=== PATIENT | female | born 1990 | race Caucasian/White ===

== ENCOUNTER 2016-05-01 19:06 | Emergency (ER) | payer SELFPAY ==
[~2016-05-01] VITALS: Ht 165.1 cm; Wt 59.1 kg
[2016-05-01] MEDS ORDERED: LURA40 PO (19:16)
[2016-05-01] MEDS ORDERED: HYDR-4031 PO (19:16)
[2016-05-01 19:52] LABS: BASOPHILS % (AUTO) 0.4 % (0.0-2.0); EOSINOPHILS % (AUTO) 3.8 % (1.0-6.0); HEMATOCRIT 44.1 % (36-46); HEMOGLOBIN 14.6 g/dL (12.0-16.0); LYMPHOCYTES # (AUTO) 2.9 K/uL (1.0-4.8); LYMPHOCYTES % (AUTO) 42.3 % (22.0-44.0); MEAN CORPUSCULAR HEMOGLOBIN 30.7 pg (26.0-34.0); MEAN CORPUSCULAR HGB CONC 33.1 G/dL (31.0-37.0); MEAN CORPUSCULAR VOLUME 93 fL (80-100); MONOCYTES # (AUTO) 0.5 K/uL (0.1-1.0); MONOCYTES % (AUTO) 7.7 % (2.0-9.0); NEUTROPHILS # (AUTO) 3.1 K/uL (1.8-7.7); NEUTROPHILS % (AUTO) 45.8 % (40.0-70.0); PLATELET COUNT (AUTO) 272 K/uL (150-450); RED BLOOD CELL COUNT(AUTO) 4.76 MIL/uL (4.00-5.20); WHITE BLOOD COUNT (AUTO) 6.8 K/uL (4.5-11.0)
[2016-05-01 20:02] LABS: ANION GAP 13 mmol/L (8-16); CALCIUM, TOTAL 9.1 mg/dL (8.8-10.5); CARBON DIOXIDE 25 mmol/L (22-29); CHLORIDE 102 mmol/L (98-107); CREATININE 0.71 mg/dL (0.60-1.30); GLOMERULAR FILTR. RATE CALC > 60 mL/min (>60); POTASSIUM 3.4 mmol/L (3.5-5.1); SODIUM SERUM 140 mmol/L (136-145); UREA NITROGEN, BLOOD 5 mg/dL (7-18)
[2016-05-01 20:08] LABS: ALANINE AMINOTRANSFERASE 24 U/L (12-78); ALBUMIN 4.3 g/dL (3.4-5.0); ASPARTATE AMINOTRANSFERASE 21 U/L (15-37); BILIRUBIN,TOTAL 0.1 mg/dL (0.1-1.0); TOTAL PROTEIN, SERUM 7.9 g/dL (6.4-8.2)
[2016-05-01] MEDS ORDERED: SODIUM CHLORIDE 0.9% 1,000 ML IV ONE (20:15)
[2016-05-01] MEDS ORDERED: ONDANSETRON HCL 4 MG/2 ML VIAL IVP ONE (20:15)
[2016-05-01 20:33] LABS: GLUCOSE, URINE (UA) NEGATIVE (NEGATIVE); KETONES,URINE NEGATIVE (NEGATIVE); LEUKOCYTE ESTERASE ,URINE NEGATIVE (NEGATIVE); OCCULT BLOOD,URINE NEGATIVE (NEGATIVE); PROTEIN,URINE NEGATIVE (NEGATIVE)
[2016-05-01 20:38] LABS: ADD UA MICROSCOPIC NO; APPEARANCE,URINE CLEAR (CLEAR)
[2016-05-01] MEDS ORDERED: ACETAMINOPHEN 325 MG TABLET PO ONE (21:30)
[2016-05-01 23:09] VITALS: BP 122/75
== END 2016-05-01 23:12 | disposition home or self-care (01) ==
LOC: EMS 19:11
DX: F31.9 Bipolar disorder, unspecified (principal); F10.129 Alcohol abuse with intoxication, unspecified; F17.210 Nicotine dependence, cigarettes, uncomplicated; Y90.6 Blood alcohol level of 120-199 mg/100 ml
CPT/HCPCS: 36415; 80053; 80307; 81003; 83690; 84703; 85025; 96361; 96374; 99285; G0480; J2405; J7030

== ENCOUNTER 2016-07-08 01:01 | Inpatient (IN) | payer MEDICAID, OTHER ==
[~2016-07-08] VITALS: Ht 165.1 cm; Wt 61.7 kg
[~2016-07-08 01:01] MED LIST: HYDR-4031 PO; LURA40 PO
[2016-07-08] MEDS ORDERED: GABA-531 PO (01:11)
[2016-07-08 01:43] LABS: BASOPHILS # (AUTO) 0.04 K/uL (0.00-0.20); BASOPHILS % (AUTO) 0.6 % (0.0-2.0); EOSINOPHILS # (AUTO) 0.43 K/uL (0.00-0.70); HEMATOCRIT 40.5 % (36-46); HEMOGLOBIN 13.8 g/dL (12.0-16.0); LYMPHOCYTES # (AUTO) 3.5 K/uL (1.0-4.8); LYMPHOCYTES % (AUTO) 50.8 % (22.0-44.0); MEAN CORPUSCULAR HEMOGLOBIN 31.7 pg (26.0-34.0); MEAN CORPUSCULAR VOLUME 93 fL (80-100); MONOCYTES # (AUTO) 0.5 K/uL (0.1-1.0); MONOCYTES % (AUTO) 7.4 % (2.0-9.0); NEUTROPHILS # (AUTO) 2.4 K/uL (1.8-7.7); PLATELET COUNT (AUTO) 235 K/uL (150-450); RED BLOOD CELL COUNT(AUTO) 4.35 MIL/uL (4.00-5.20); WHITE BLOOD COUNT (AUTO) 6.9 K/uL (4.5-11.0)
[2016-07-08 01:50] LABS: ANION GAP 10 mmol/L (8-16); CALCIUM, TOTAL 8.5 mg/dL (8.8-10.5); CARBON DIOXIDE 27 mmol/L (22-29); CHLORIDE 110 mmol/L (98-107); CREATININE 0.71 mg/dL (0.60-1.30); GLOMERULAR FILTR. RATE CALC > 60 mL/min (>60); POTASSIUM 4.2 mmol/L (3.5-5.1); SODIUM SERUM 147 mmol/L (136-145); UREA NITROGEN, BLOOD 10 mg/dL (7-18)
[2016-07-08 01:55] LABS: ALANINE AMINOTRANSFERASE 18 U/L (12-78); ALBUMIN 4.2 g/dL (3.4-5.0); ASPARTATE AMINOTRANSFERASE 13 U/L (15-37); BILIRUBIN,TOTAL 0.1 mg/dL (0.1-1.0); TOTAL PROTEIN, SERUM 7.6 g/dL (6.4-8.2)
[2016-07-08] MEDS ORDERED: ZOLPIDEM TARTRATE 10 MG TABLET PO PRN (02:30)
[2016-07-08] MEDS ORDERED: HALOPERIDOL 5 MG TABLET PO PRN (02:30)
[2016-07-08] MEDS ORDERED: ACETAMINOPHEN 325 MG TABLET PO ONE (03:30)
[2016-07-08] MEDS: LORazepam 2 MG TABLET PO PRN ×2 (03:41→20:29)
[2016-07-08] MEDS ORDERED: LURA40 PO (03:44)
[2016-07-08] MEDS ORDERED: HYDR-4031 PO ×2 (03:44)
[2016-07-08] MEDS ORDERED: GABA-529 PO (03:44)
[2016-07-08 10:42] LABS: ADD UA MICROSCOPIC NO; APPEARANCE,URINE CLEAR (CLEAR); GLUCOSE, URINE (UA) NEGATIVE (NEGATIVE); KETONES,URINE NEGATIVE (NEGATIVE); LEUKOCYTE ESTERASE ,URINE NEGATIVE (NEGATIVE); OCCULT BLOOD,URINE NEGATIVE (NEGATIVE); PH,URINE 5.5 (5.0-8.0); PROTEIN,URINE NEGATIVE (NEGATIVE)
[2016-07-08 17:03] VITALS: BP 104/68
[2016-07-08] MEDS: BACITRACIN 28.4 GM OINTMENT TP SCH (19:30)
[2016-07-08] MEDS ORDERED: ONDANSETRON HCL 4 MG TABLET PO PRN (19:45)
[2016-07-08] MEDS ORDERED: MAGNESIUM HYDROXIDE SUSPENSION 30 ML UDCUP PO PRN (19:45)
[2016-07-08] MEDS ORDERED: MAG HYDROX/AL HYDROX/SIMETH ES 30 ML SUSPENSION UDCUP PO PRN (19:45)
[2016-07-08] MEDS ORDERED: ALBUTEROL SULFATE HFA 90 MCG/PUFF 8 GM INHALER IH PRN (19:45)
[2016-07-08] MEDS ORDERED: PETROLATUM,WHITE 71 GM JELLY TP PRN (19:45)
[2016-07-08] MEDS ORDERED: CloNIDine HCL 0.1 MG TABLET PO PRN (19:45)
[2016-07-08] MEDS ORDERED: BACITRACIN 28.4 GM OINTMENT TP PRN (19:45)
[2016-07-08] MEDS ORDERED: ACETAMINOPHEN 325 MG TABLET PO PRN (19:45)
[2016-07-08] MEDS ORDERED: LOPERAMIDE HCL 2 MG CAPSULE PO PRN (19:45)
[2016-07-08] MEDS ORDERED: BENZOCAINE/MENTHOL LOZENGE [8 LOZENGES/PACKET] MM PRN (20:00)
[2016-07-09 08:10] LABS: CHOL/HDL RATIO 2.6 (3.9-5.7); THYROID STIMULATING HORMONE 0.81 uIU/mL (0.36-3.74)
[2016-07-09 09:00] VITALS: BP 100/62
[2016-07-09] MEDS: NICOTINE 21 MG/24 HOUR PATCH TD SCH (09:52)
[2016-07-09] MEDS: BACITRACIN 28.4 GM OINTMENT TP SCH ×2 (09:52→16:24)
[2016-07-09] MEDS: IBUPROFEN 600 MG TABLET PO PRN ×2 (10:48→17:01)
[2016-07-09] MEDS: GABAPENTIN 100 MG CAPSULE PO SCH ×2 (10:48→16:59)
[2016-07-09 11:50] VITALS: BP 110/65
[2016-07-09] MEDS: MULTIVITAMINS WITH MINERALS, THERAPEUTIC TABLET PO SCH (13:55)
[2016-07-09 17:03] VITALS: BP 106/65
[2016-07-09] MEDS: HydrOXYzine PAMOATE 50 MG CAPSULE PO SCH (20:35)
[2016-07-09] MEDS: RisperiDONE 2 MG TABLET PO SCH (20:35)
[2016-07-10] MEDS: NICOTINE 21 MG/24 HOUR PATCH TD SCH (09:47)
[2016-07-10] MEDS: CHOLECALCIFEROL (VIT D3) 1,000 UNITS TABLET PO SCH (09:48)
[2016-07-10] MEDS: MULTIVITAMINS WITH MINERALS, THERAPEUTIC TABLET PO SCH (09:48)
[2016-07-10] MEDS: GABAPENTIN 100 MG CAPSULE PO SCH ×2 (09:49→17:06)
[2016-07-10] MEDS: BACITRACIN 28.4 GM OINTMENT TP SCH ×2 (09:49→17:05)
[2016-07-10] MEDS: IBUPROFEN 600 MG TABLET PO PRN (09:52)
[2016-07-10 09:55] VITALS: BP 108/70
[2016-07-10 10:53] VITALS: BP 100/68
[2016-07-10 16:47] VITALS: BP 127/81
[2016-07-10] MEDS: RisperiDONE 2 MG TABLET PO SCH (20:33)
[2016-07-10] MEDS: HydrOXYzine PAMOATE 50 MG CAPSULE PO SCH (20:33)
[2016-07-11 08:04] VITALS: BP 112/65
[2016-07-11] MEDS: CHOLECALCIFEROL (VIT D3) 1,000 UNITS TABLET PO SCH (09:42)
[2016-07-11] MEDS: GABAPENTIN 100 MG CAPSULE PO SCH (09:42)
[2016-07-11] MEDS: MULTIVITAMINS WITH MINERALS, THERAPEUTIC TABLET PO SCH (09:42)
[2016-07-11] MEDS: NICOTINE 21 MG/24 HOUR PATCH TD SCH (09:44)
[2016-07-11] MEDS: BACITRACIN 28.4 GM OINTMENT TP SCH (11:21)
[2016-07-11] MEDS ORDERED: VIST50 PO (13:54)
[2016-07-11] MEDS ORDERED: RISP2 PO (13:55)
[2016-07-11] MEDS ORDERED: MULT-248 PO (13:57)
[2016-07-11] MEDS ORDERED: VITAD1000 PO (13:58)
[2016-07-12] MEDS ORDERED: BACITRACIN 28.4 GM OINTMENT TP SCH (09:00)
== END 2016-07-11 15:00 | disposition home or self-care (01) | DRG 753 ==
LOC: EEVIPCON 01:02 → EMS 01:02 → 3EI 15:08
DX: F31.4 Bipolar disorder, current episode depressed, severe, without psychotic features (principal); E87.0 Hyperosmolality and hypernatremia; R45.851 Suicidal ideations; E55.9 Vitamin D deficiency, unspecified; S61.512A Laceration without foreign body of left wrist, initial encounter; F17.210 Nicotine dependence, cigarettes, uncomplicated; F41.9 Anxiety disorder, unspecified; X78.8XXA Intentional self-harm by other sharp object, initial encounter; F10.10 Alcohol abuse, uncomplicated; G47.00 Insomnia, unspecified; Z79.899 Other long term (current) drug therapy; Y93.89 Activity, other specified; Y92.89 Other specified places as the place of occurrence of the external cause; Y99.8 Other external cause status; Z71.41 Alcohol abuse counseling and surveillance of alcoholic; Z71.6 Tobacco abuse counseling; Z88.9 Allergy status to unspecified drugs, medicaments and biological substances; Z28.21 Immunization not carried out because of patient refusal
CPT/HCPCS: 81025; 82306; 84295; 84443; 99285; G0480; Q0162